=== PATIENT | female | born 1980 | race American Indian/Alaskan Native ===

== ENCOUNTER 2018-01-13 18:48 | Emergency (ER) | payer OTHER ==
[2018-01-13] MEDS ORDERED: MOTRIN PO ONE (23:40)
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
[2018-01-14 00:02] VITALS: BP 122/78
== END 2018-01-14 | disposition home or self-care (01) ==
LOC: ED 18:48
DX: S29.012A Strain of muscle and tendon of back wall of thorax, initial encounter (principal); V49.49XA Driver injured in collision with other motor vehicles in traffic accident, initial encounter; Y93.89 Activity, other specified; Y92.89 Other specified places as the place of occurrence of the external cause; Y99.8 Other external cause status
CPT/HCPCS: 99282